=== PATIENT | female | born 1990 | race Caucasian/White ===

== ENCOUNTER 2020-05-30 10:15 | Day surgery (SDC) | payer MEDICAID ==
[2020-05-28 14:50] LABS: BASOPHILS % (AUTO) 0.3 % (0-1); EOSINOPHILS # (AUTO) 0.1 X10'3 (0-0.9); EOSINOPHILS % (AUTO) 2.7 % (0-6); LYMPHOCYTES # (AUTO) 1.4 X10'3 (1.1-4.8); LYMPHOCYTES % (AUTO) 32.6 % (21-51); MEAN CORPUSCULAR HEMOGLOBIN 28.2 PG (27.0-31.0); MEAN CORPUSCULAR HGB CONC 33.2 g/dL (33.0-36.5); MEAN CORPUSCULAR VOLUME 84.9 FL (78-98); MEAN PLATELET VOLUME 8.3 FL (7.4-10.4); MONOCYTES # (AUTO) 0.4 X10'3 (0-0.9); NEUTROPHILS # (AUTO) 2.3 X10'3 (1.8-7.7); NEUTROPHILS % (AUTO) 55.4 % (42-75); PRE OP HEMATOCRIT 39.5 % (35.0-45.0); PRE OP HEMOGLOBIN 13.1 g/dL (12.0-16.0); PRE OP PLATELET COUNT 289 X10'3 (140-440); RED BLOOD COUNT 4.65 X10'6 (4.20-5.60)
[2020-05-28 15:10] LABS: ALBUMIN 3.5 G/DL (3.4-5.0); ALBUMIN/GLOBULIN RATIO 0.8 (1.1-1.5); ALKALINE PHOSPHATASE 64 IU/L (46-116); BLOOD UREA NITROGEN 11 MG/DL (7-18); CALCIUM 8.8 MG/DL (8.5-10.1); CHLORIDE 102 MMOL/L (99-107); CREATININE 0.92 MG/DL (0.40-0.90); PRE OP ALT 20 U/L (30-65); PRE OP ANION GAP 10 (8-16); PRE OP AST 16 U/L (10-37); PRE OP BILIRUB, TOTAL 0.1 MG/DL (0.0-1.0); PRE OP GLUCOSE 112 MG/DL (70-104); PRE OP POTASSIUM 3.9 MMOL/L (3.4-5.1); PRE OP SODIUM 135 MMOL/L (135-145); TOTAL CARBON DIOXIDE 22.9 MMOL/L (24-32); TOTAL PROTEIN 7.8 G/DL (6.4-8.2); eGFR 73 ML/MIN
[2020-05-28 15:35] LABS: HCG SERUM QL NEGATIVE
[2020-05-30] VITALS (12 sets, daily range): BP systolic 113–135; BP diastolic 69–84
[~2020-05-30] VITALS: Ht 152.4 cm; Wt 67.6 kg
[~2020-05-30 10:15] MED LIST: BACDS PO; CLON-418 PO; FLUO-1 PO; HYDR-3964 PO; NORG1TAB12 PO; OMEP40CA13 PO; PRAZ1CAP5 PO; TRAZ-251 PO; famotidine 20mg tablet PO ONE; ringers solution, lacted 1,000 ML IV SCH
--- NOTE | 2020-05-30 11:21 | NUR ---
VERBAL COVID SCEEN NEGATIVE. DR. COLÓN AND DR. PARHAM AWARE NO SWAB NEEDED Addendum: 05/30/20 at 1123 by Marie Noguera RN Amended: Links added.
[2020-05-30] MEDS ORDERED: ringers solution, lacted 1,000 ML IV SCH (13:09)
[2020-05-30] MEDS ORDERED: morphine 4 MG/ML inj SYRINge IV PRN (13:10)
[2020-05-30] MEDS ORDERED: ondansetron/PF 4mg/2ml inj IV PRN (13:10)
[2020-05-30] MEDS ORDERED: morphine 2 MG/ML inj. syringe IV PRN (13:10)
[2020-05-30] MEDS ORDERED: ketorolac trometh. 30mg/ml inj. IV ONE (13:10)
[2020-05-30] MEDS ORDERED: proCHLORperazine 10 MG/2 ml inj IV PRN (13:10)
[2020-05-30] MEDS ORDERED: meperidine/PF 25mg/ml syringe IV PRN ×2 (13:10)
[2020-05-30] MEDS ORDERED: BUPIVAcaine/PF 2.5 mg/ml (0.25%) 30ml vial ONE ×2 (13:40→13:44)
[2020-05-30] MEDS ORDERED: sevoflurane 250ml liquid IH ONE (13:47)
[2020-05-30] MEDS ORDERED: midazolam 2 mg/2 ml injection ONE (13:49)
[2020-05-30] MEDS ORDERED: propofol inj 20 ML IV ONE (13:49)
[2020-05-30] MEDS ORDERED: rocuronium 10mg/ml inj IV ONE (13:49)
[2020-05-30] MEDS ORDERED: fentaNYL/PF 50MCG/1 ML 2ML syringe ONE (13:49)
[2020-05-30] MEDS ORDERED: dexamethasone sod phosphate 4mg/ml inj. ONE (14:11)
[2020-05-30] MEDS ORDERED: ondansetron/PF 4mg/2ml inj ONE (14:11)
[2020-05-30] MEDS ORDERED: neostigmine methylsulfate 1 MG/ML 10ml vial ONE (14:46)
[2020-05-30] MEDS ORDERED: glycopyrrolate 0.2mg/ml inj ONE (14:46)
[2020-05-30] MEDS ORDERED: oxyCODONE/APAP 5-325mg tablet PO ONE ×2 (15:00)
--- NOTE | 2020-05-30 15:03 | NUR ---
Received from OR via [facility], accompanied by Anesthesiologist Dr Mccormack and report given by Anesthesiolgist. PATIENT WAKING UP, DENIES, V/S WNL, NEUROVASCULAR CHECKS INTACT, 20G PIV L hand, SCD ON, DEMABONDED TO LAP SIGHTS OF ABDOMEN AND WITH PERIPAD WITH SCANT DRAINAGE CDI. LR at 100cc/hr.
[2020-05-30] MEDS: meperidine/PF 25mg/ml syringe IV PRN ×2 (15:13→16:07)
--- NOTE | 2020-05-30 17:30 | NUR ---
Pt unable to void, bladder scanned and only 60-80cc on average observed. Pt hooked up to IVF at 400cc/hr and given more PO fluids to drink
--- NOTE | 2020-05-30 18:05 | NUR ---
Pt voided over 100cc, states relief, pain controlled, tolerated PO fluids, ambulation.
== END 2020-05-30 18:33 | disposition home or self-care (01) ==
LOC: PAS 10:15
PROVIDERS: ATTEND Obstetrics & Gynecology
DX: N92.0 Excessive and frequent menstruation with regular cycle (principal); Z30.2 Encounter for sterilization; J45.909 Unspecified asthma, uncomplicated; G89.29 Other chronic pain; F32.9 Major depressive disorder, single episode, unspecified; F41.9 Anxiety disorder, unspecified; K21.9 Gastro-esophageal reflux disease without esophagitis; F43.10 Post-traumatic stress disorder, unspecified; Z98.890 Other specified postprocedural states; Z79.899 Other long term (current) drug therapy; Z79.84 Long term (current) use of oral hypoglycemic drugs; Z88.1 Allergy status to other antibiotic agents
CPT/HCPCS: 36415; 58563; 58670; 80053; 84703; 85025; 86885; 86900; 86901; J1100; J1885; J2175; J2250; J2270; J2405; J2704; J2710; J3010; J3490; J7030; A4264; A4355; A4618; A6250; A6258; J7120

== ENCOUNTER 2024-03-21 20:38 | Emergency (ER) | payer MEDICAID ==
[~2024-03-21] VITALS: Ht 152.4 cm; Wt 64.0 kg
[~2024-03-21 20:38] MED LIST changes: -BACDS PO; -OMEP40CA13 PO; +OMEP40CA21 PO; +SULF1TAB45 PO; -famotidine 20mg tablet PO ONE; -ringers solution, lacted 1,000 ML IV SCH
[2024-03-21 21:15] LABS: URINE HCG NEGATIVE (NEG)
[2024-03-21 21:16] LABS: BILIRUBIN,URINE NEGATIVE (Neg); CLARITY,URINE CLEAR (Clear); COLOR,URINE YELLOW (Yellow); GLUCOSE, URINE NEGATIVE (Neg); KETONES,URINE NEGATIVE (Neg); LEUKOCYTE ESTERASE ,URINE NEGATIVE (Neg); NITRITES, URINE POSITIVE (Neg); OCCULT BLOOD,URINE NEGATIVE (Neg); PH,URINE 6.5 (4.8-8.0); PROTEIN,URINE NEGATIVE (Neg); UROBILINOGEN,URINE 0.2 E.U/dL (0.2-1.0)
[2024-03-21 21:20] LABS: UA COLLECTION TYPE CLN CATCH MIDSTREAM
[2024-03-21 21:25] LABS: BACTERIA,URINE 4+ /HPF (Neg); MUCUS STRANDS NONE SEEN /LPF (Neg); RBC,URINE 0-2 /HPF (0-2); SQUAMOUS EPITHELIAL CELL,UR NONE SEEN /LPF (FEW); WBC,URINE 0-4 /HPF (0-4)
[2024-03-21 22:00] LABS: BASOPHILS # (AUTO) 0.1 X10'3 (0-0.2); BASOPHILS % (AUTO) 0.6 % (0-1); EOSINOPHILS # (AUTO) 0.1 X10'3 (0-0.9); EOSINOPHILS % (AUTO) 0.9 % (0-6); HEMATOCRIT 37.4 % (35.0-45.0); HEMOGLOBIN 12.8 g/dl (12.0-16.0); LYMPHOCYTES # (AUTO) 1.8 X10'3 (1.1-4.8); LYMPHOCYTES % (AUTO) 17.1 % (21-51); MEAN CORPUSCULAR HEMOGLOBIN 28.3 PG (27.0-31.0); MEAN CORPUSCULAR HGB CONC 34.1 g/dL (33.0-36.5); MONOCYTES # (AUTO) 0.7 X10'3 (0-0.9); MONOCYTES % (AUTO) 6.5 % (2-12); NEUTROPHILS # (AUTO) 7.7 X10'3 (1.8-7.7); NEUTROPHILS % (AUTO) 74.9 % (42-75); PLATELET COUNT 256 X10'3 (140-440); RED BLOOD COUNT 4.51 X10'6 (4.20-5.60); WHITE BLOOD COUNT 10.3 X10'3 (4.5-11.0)
[2024-03-21 22:11] LABS: ALANINE AMINOTRANSFERASE 21 U/L (12-78); ALBUMIN 3.7 G/DL (3.4-5.0); ALBUMIN/GLOBULIN RATIO 0.9 (1.1-1.5); ALKALINE PHOSPHATASE 63 IU/L (46-116); ANION GAP 10 (8-16); ASPARTATE AMINO TRANSFERASE 11 U/L (10-37); BILIRUBIN,TOTAL 0.2 MG/DL (0.1-1.0); BLOOD UREA NITROGEN 8 MG/DL (7-18); CALCIUM 8.7 MG/DL (8.5-10.1); CHLORIDE 102 MMOL/L (99-107); GLUCOSE 100 MG/DL (70-104); LIPASE 30 U/L (16-77); POTASSIUM 3.6 MMOL/L (3.5-5.1); SODIUM 138 MMOL/L (135-145); TOTAL CARBON DIOXIDE 26.5 MMOL/L (24-32); TOTAL PROTEIN 7.6 G/DL (6.4-8.2); eCRCL 73 ML/MIN; eGFR 84 ML/MIN
[2024-03-21] MEDS ORDERED: ibuprofen tablet 400 MG TABLET PO ONE (23:10)
[2024-03-21] MEDS: acetaminophen 325mg tablet PO ONE (23:23)
[2024-03-21] MEDS: proCHLORperazine 10mg tablet PO ONE (23:23)
[2024-03-21] MEDS: ibuprofen 200mg tablet PO ONE (23:23)
[2024-03-22] MEDS ORDERED: CEPH-585 PO (00:20)
[2024-03-22 00:25] VITALS: BP 113/60; PULSE 79; RESP 14; TEMP 98.3; O2SAT 97
== END 2024-03-22 00:27 | disposition home or self-care (01) ==
LOC: ER 20:38
DX: N39.0 Urinary tract infection, site not specified (principal); R51.9 Headache, unspecified; R11.0 Nausea; Z88.8 Allergy status to other drugs, medicaments and biological substances; Z79.899 Other long term (current) drug therapy; Z79.2 Long term (current) use of antibiotics
CPT/HCPCS: 36415; 74176; 80053; 81001; 81025; 83690; 85025; 87088; 99284; Q0164; 87077; 87186

== ENCOUNTER 2024-09-15 07:04 | Day surgery (SDC) | payer MEDICAID ==
[2024-09-12 15:07] LABS: BASOPHILS % (AUTO) 0.3 % (0-1); EOSINOPHILS # (AUTO) 0.1 X10'3 (0-0.9); EOSINOPHILS % (AUTO) 1.6 % (0-6); LYMPHOCYTES # (AUTO) 2.7 X10'3 (1.1-4.8); LYMPHOCYTES % (AUTO) 35.6 % (21-51); MEAN CORPUSCULAR HEMOGLOBIN 28.5 PG (27.0-31.0); MEAN CORPUSCULAR HGB CONC 33.5 g/dL (33.0-36.5); MEAN PLATELET VOLUME 8.2 FL (7.4-10.4); MONOCYTES # (AUTO) 0.5 X10'3 (0-0.9); MONOCYTES % (AUTO) 7.1 % (2-12); NEUTROPHILS # (AUTO) 4.2 X10'3 (1.8-7.7); NEUTROPHILS % (AUTO) 55.4 % (42-75); PRE OP HEMATOCRIT 39.1 % (35.0-45.0); PRE OP HEMOGLOBIN 13.1 g/dL (12.0-16.0); PRE OP PLATELET COUNT 297 X10'3 (140-440); PRE OP WHITE BLOOD COUNT 7.5 10'3 (4.8-10.8); RED BLOOD COUNT 4.61 X10'6 (4.20-5.60)
[2024-09-12 15:16] LABS: ALBUMIN 3.9 G/DL (3.4-5.0); ALKALINE PHOSPHATASE 59 IU/L (46-116); BLOOD UREA NITROGEN 7 MG/DL (7-18); BUN/CREATININE RATIO 8.6 (10.0-20.0); CALCIUM 8.5 MG/DL (8.5-10.1); CHLORIDE 101 MMOL/L (99-107); CREATININE 0.81 MG/DL (0.40-0.90); PRE OP ALT 29 U/L (30-65); PRE OP ANION GAP 8 (8-16); PRE OP AST 15 U/L (10-37); PRE OP BILIRUB, TOTAL 0.2 MG/DL (0.0-1.0); PRE OP GLUCOSE 89 MG/DL (70-104); PRE OP POTASSIUM 3.4 MMOL/L (3.4-5.1); PRE OP SODIUM 135 MMOL/L (135-145); TOTAL CARBON DIOXIDE 26.1 MMOL/L (24-32); TOTAL PROTEIN 7.9 G/DL (6.4-8.2); eGFR 82 ML/MIN
[2024-09-12 15:23] LABS: HCG SERUM QL NEGATIVE
[2024-09-15] VITALS (9 sets, daily range): BP systolic 108–134; BP diastolic 75–94; PULSE 76–100; RESP 12–19; TEMP 97.3; O2SAT 93–100
[~2024-09-15] VITALS: Ht 152.4 cm; Wt 70.0 kg
[2024-09-15] MEDS: famotidine 20mg tablet PO ONE (05:30)
[2024-09-15] MEDS: levoFLOXACIN-Levaquin 500mg/D5 100 ML IV ONE (06:56)
[~2024-09-15 07:04] MED LIST changes: +ALBU18HF2 INH; +CETI10TA14 PO; -CLON-418 PO; +DOCUMENT DATE & TIME OF BETA-BLOCKER PO ONE; +FAMO40TA58 PO; -FLUO-1 PO; +METF-900 PO; -NORG1TAB12 PO; +ONDA-103 PO; +SEMA0.258 SQ; -SULF1TAB45 PO; -TRAZ-251 PO; +ringers solution, lacted 1,000 ML IV SCH
[2024-09-15] MEDS ORDERED: LIDOcaine 1% (10mg/ml)w/preservative inj. 20ml MDV ONE (07:15)
[2024-09-15] MEDS ORDERED: BUPIVAcaine/PF 2.5mg/ml (0.25%) 10ml vial ONE (07:15)
[2024-09-15] MEDS ORDERED: meperidine/PF 25mg/ml syringe IV PRN ×3 (07:25)
[2024-09-15] MEDS ORDERED: enalaprilat dihydrate 2.5mg/2ml vial IV PRN (07:25)
[2024-09-15] MEDS ORDERED: ringers solution, lacted 1,000 ML IV SCH (07:25)
[2024-09-15] MEDS ORDERED: labetalol 20mg/4ml (5mg/ml) syringe IV PRN (07:25)
[2024-09-15] MEDS ORDERED: morphine 2 MG/ML inj. syringe IV PRN (07:25)
[2024-09-15] MEDS ORDERED: morphine 4 MG/ML inj SYRINge IV PRN (07:25)
[2024-09-15] MEDS ORDERED: proCHLORperazine 10 MG/2 ml inj IV PRN (07:25)
[2024-09-15] MEDS ORDERED: ondansetron/PF 4mg/2ml inj IV PRN (07:25)
[2024-09-15] MEDS ORDERED: sevoflurane 250ml liquid IH ONE (09:12)
[2024-09-15] MEDS ORDERED: fentaNYL/PF 50MCG/1 ML 2ML syringe ONE (09:16)
[2024-09-15] MEDS ORDERED: midazolam 1 mg/ML 2ml injection ONE (09:17)
[2024-09-15] MEDS ORDERED: propofol inj 20 ML IV ONE (09:23)
[2024-09-15] MEDS ORDERED: LIDOcaine 2% (20mg/ml) 5ml vial ONE (09:23)
[2024-09-15] MEDS ORDERED: ondansetron/PF 4mg/2ml inj ONE (09:25)
[2024-09-15] MEDS: BUPIVAcaine/PF 2.5mg/ml (0.25%) 10ml vial IJ ONE (09:40)
== END 2024-09-15 11:13 | disposition home or self-care (01) ==
LOC: PAS 07:04
PROVIDERS: ATTEND Surgery
DX: N60.01 Solitary cyst of right breast (principal); L72.0 Epidermal cyst; N64.89 Other specified disorders of breast; N60.11 Diffuse cystic mastopathy of right breast; N60.12 Diffuse cystic mastopathy of left breast; E66.01 Morbid (severe) obesity due to excess calories; J45.909 Unspecified asthma, uncomplicated; K21.9 Gastro-esophageal reflux disease without esophagitis; F41.9 Anxiety disorder, unspecified; F31.9 Bipolar disorder, unspecified; G40.909 Epilepsy, unspecified, not intractable, without status epilepticus; Z87.440 Personal history of urinary (tract) infections; Z79.1 Long term (current) use of non-steroidal anti-inflammatories (NSAID); Z79.84 Long term (current) use of oral hypoglycemic drugs; Z79.891 Long term (current) use of opiate analgesic; Z79.899 Other long term (current) drug therapy; Z98.51 Tubal ligation status; Z98.890 Other specified postprocedural states; Z68.30 Body mass index [BMI] 30.0-30.9, adult; Z88.0 Allergy status to penicillin; Z91.018 Allergy to other foods; Z88.8 Allergy status to other drugs, medicaments and biological substances
CPT/HCPCS: 11403; 36415; 80053; 82948; 84703; 85025; J1100; J1956; J2003; J2250; J2405; J2704; J3010; J3490; J7030; J7120; Z7506; Z7512; A4215; A4618; A6258; A6449; A7000